=== PATIENT | male | born 1965 | race Caucasian/White ===

== ENCOUNTER 2023-03-08 13:48 | Emergency (ER) | payer OTHER ==
[2023-03-08 13:52] VITALS: BP 125/68; PULSE 76; RESP 18; TEMP 97; BMI 35.0
[2023-03-08] MEDS ORDERED: DIPHTH,PERTUSS(ACELL),TET 0.5 ML DISP.SYRIN IM ONE ×2 (15:12→15:16)
== END 2023-03-08 16:22 | disposition home or self-care (01) ==
LOC: JER 13:48 → JERFT 13:48
PROC: 3E0234Z Introduction of Serum, Toxoid and Vaccine into Muscle, Percutaneous Approach (ICD-10-PCS; principal; 2023-03-08)
DX: S51.812A Laceration without foreign body of left forearm, initial encounter (principal); W26.0XXA Contact with knife, initial encounter
CPT/HCPCS: 90715; 99284-25